=== PATIENT | female | born 1980 | race Caucasian/White ===

== ENCOUNTER 2017-10-28 13:46 | Emergency (ER) | payer BC ==
[2017-10-28 14:48] VITALS: BP 133/82
--- NOTE | 2017-10-28 14:49 | EDM.PDOC ---
ED HPI GENERAL MEDICAL PROBLEM - General Chief Complaint: Respiratory Problem Stated Complaint: COLD SWEATS Time Seen by Provider: 10/28/17 14:49 Source of Information: Reports: Patient - History of Present Illness INITIAL COMMENTS - FREE TEXT/NARRATIVE: HISTORY AND PHYSICAL: History of present illness: [ Patient with persistent cough over the last week increasing mostly over the last 3 days complains of intermittent fever chills sweats myalgias general malaise, she does cough until she was lightheaded and has vomited secondary to coughing on a couple of occasions No chest pain shortness of breath dizziness or palpitation no bowel or urine symptoms Patient states currently menstruating hence no hCG ] Review of systems: As per history of present illness and below otherwise all systems reviewed and negative. Past medical history: As per history of present illness and as reviewed below otherwise noncontributory. Surgical history: As per history of present illness and as reviewed below otherwise noncontributory. Social history: No reported history of drug or alcohol abuse. Family history: As per history of present illness and as reviewed below otherwise noncontributory. Physical exam: HEENT: Atraumatic, normocephalic, pupils reactive, negative for conjunctival pallor or scleral icterus, mucous membranes moist, throat clear, neck supple, nontender, trachea midline. Tympanic membranes mildly injected oropharynx mild erythema no exudates no stridor no meningeal sign Lungs: Clear to auscultation, breath sounds equal bilaterally, chest nontender. Heart: S1S2, regular, negative for clicks, rubs, or JVD. Abdomen: Soft, nondistended, nontender. Negative for masses or hepatosplenomegaly. Negative for costovertebral tenderness. Pelvis: Stable nontender. Genitourinary: Deferred. Rectal: Deferred. Extremities: Atraumatic, negative for cords or calf pain. Neurovascular unremarkable. Neuro: Awake, alert, oriented. Cranial nerves II through XII unremarkable. Cerebellum unremarkable. Motor and sensory unremarkable throughout. Exam nonfocal. Diagnostics: [Influenza Chest 2 views Patient currently menstruating hence no hCG ] Therapeutics: [Z-Oziel 250 mg HFA] Impression: Acute bronchitis Definitive disposition and diagnosis as appropriate pending reevaluation and review of above. Generalized Pain Score (Numeric/FACES): 4 - Related Data Allergies Allergy/AdvReac Type Severity Reaction Status Date / Time No Known Allergies Allergy Verified 10/28/17 14:48 Home Meds: Home Meds . [No Known Home Meds] 03/10/15 [History] Past Medical History Other OB/BYN History: tubal ligation Social & Family History - Family History Endocrine/Metabolic: Reports: Diabetes, type II Oncologic: Reports: Leukemia - Tobacco Use Smoking Status *Q: Never Smoker Years of Tobacco use: 1 - Alcohol Use Days Per Week of Alcohol Use: 1 Number of Drinks Per Day: 4 Total Drinks Per Week: 4 - Recreational Drug Use Recreational Drug Use: No Drug Use in Last 12 Months: No ED ROS GENERAL - Review of Systems Review Of Systems: ROS reveals no pertinent complaints other than HPI. ED EXAM, GENERAL - Physical Exam Exam: See Below Course - Vital Signs Last Recorded V/S: Last Vital Signs Temp 97.9 F 10/28/17 14:45 Pulse 71 10/28/17 14:45 Resp 18 10/28/17 14:45 BP 133/82 10/28/17 14:45 Pulse Ox 98 10/28/17 14:45 Departure - Departure Time of Disposition: 15:59 Disposition: Home, Self-Care 01 Condition: Good Clinical Impression: Acute bronchitis - Discharge Information Referrals: PCP,None [Primary Care Provider] - Forms: ED Department Discharge Additional Instructions: The following information is given to patients seen in the emergency department who are being discharged to home. This information is to outline your options for follow-up care. We provide all patients seen in our emergency department with a follow-up referral. The need for follow-up, as well as the timing and circumstances, are variable depending upon the specifics of your emergency department visit. If you don't have a primary care physician on staff, we will provide you with a referral. We always advise you to contact your personal physician following an emergency department visit to inform them of the circumstance of the visit and for follow-up with them and/or the need for any referrals to a consulting specialist. The emergency department will also refer you to a specialist when appropriate. This referral assures that you have the opportunity for follow-up care with a specialist. All of these measure are taken in an effort to provide you with optimal care, which includes your follow-up. Under all circumstances we always encourage you to contact your private physician who remains a resource for coordinating your care. When calling for follow-up care, please make the office aware that this follow-up is from your recent emergency room visit. If for any reason you are refused follow-up, please contact the [facility] emergency department at and asked to speak to the emergency department charge nurse.
--- NOTE | 2017-10-28 15:25 | CR ---
EXAMINATION: Two-view chest (PA and Lateral views). HISTORY: Shortness of breath. FINDINGS: The trachea is midline. The cardiomediastinal silhouette is within normal limits. No pulmonary infilt rates, effusions or pneumothorax. Osseous structures appear unremarkable. IMPRESSION: No acute cardiopulmonary process.
== END 2017-10-28 16:13 | disposition home or self-care (01) ==
LOC: MW.ED 13:46
DX: J20.9 Acute bronchitis, unspecified (principal)
CPT/HCPCS: 71046; 71046-26; 87804; 99283

== ENCOUNTER 2017-10-29 01:02 | Emergency (ER) | payer BC ==
--- NOTE | 2017-10-29 01:36 | EDM.PDOC ---
ED HPI GENERAL MEDICAL PROBLEM - General Chief Complaint: Respiratory Problem Stated Complaint: CHEST PAIN, SHORTNESS OF BREATH, CONVULSIONS Time Seen by Provider: 10/29/17 01:35 - History of Present Illness INITIAL COMMENTS - FREE TEXT/NARRATIVE: HISTORY AND PHYSICAL: History of present illness: [36-year-old female presenting to emergency department with chief complaint of fever and chills with cough and shaking. Patient was seen here yesterday for similar symptoms and was given azithromycin for acute bronchitis. At that time influenza was negative and chest x-ray was unremarkable. Patient states that since then she has not really had any more fevers but has had some nausea and vomiting. She also states that she is more chills and "shaking" she remembers the shaking and states that it is not a seizure. She does have some chest pain with deep breaths which he states is the same as she had before. She also has felt a lump under her right axilla would like it examined. She currently denies any shortness of breath, palpitations, syncopal episodes, or focal neurologic deficits. She also has had no diarrhea. On exam there is a small freely movable nodule under the right axilla that is painful to palpation and is a swollen lymph node.] Review of systems: As per history of present illness and below otherwise all systems reviewed and negative. Past medical history: As per history of present illness and as reviewed below otherwise noncontributory. Surgical history: As per history of present illness and as reviewed below otherwise noncontributory. Social history: No reported history of drug or alcohol abuse. Family history: As per history of present illness and as reviewed below otherwise noncontributory. Physical exam: HEENT: Atraumatic, normocephalic, pupils reactive, negative for conjunctival pallor or scleral icterus, mucous membranes moist, throat clear, neck supple, nontender, trachea midline. Lungs: Clear to auscultation, breath sounds equal bilaterally, chest nontender. Heart: S1S2, regular, negative for clicks, rubs, or JVD. Abdomen: Soft, nondistended, nontender. Negative for masses or hepatosplenomegaly. Negative for costovertebral tenderness. Pelvis: Stable nontender. Genitourinary: Deferred. Rectal: Deferred. Extremities: Atraumatic, negative for cords or calf pain. Neurovascular unremarkable. Neuro: Awake, alert, oriented. Cranial nerves II through XII unremarkable. Cerebellum unremarkable. Motor and sensory unremarkable throughout. Exam nonfocal. Diagnostics: [CBC, CMP, UA, UC] Therapeutics: [Toradol 60 mg IM 1] Impression: [Costochondritis secondary to acute bronchitis] Plan: [CBC CMP and UA were all unremarkable. Patient was given Toradol 60 mg for her rib pain which did help. Rib pain most likely secondary to costochondritis related to her acute bronchitis. This was explained to the patient and she was given a prescription for meloxicam. Diagnosis of osteoarthritis was discussed with the patient and all questions were entertained and answered. Patient was instructed to continue taking the azithromycin that she had been prescribed yesterday by Dr. Abdi as well as use her albuterol inhaler as needed for shortness of breath. She should also take the meloxicam for her rib pain. Patient was instructed to return in emergency department if she had any new or worsening symptoms.] General pain Pain Score (Numeric/FACES): 8 - Related Data Allergies Allergy/AdvReac Type Severity Reaction Status Date / Time No Known Allergies Allergy Verified 10/29/17 01:08 Home Meds: Home Meds . [No Known Home Meds] 03/10/15 [History] Past Medical History - Past Health History Medical/Surgical History: Denies Medical/Surgical History Genitourinary History: Reports: Other (See Below) Other Genitourinary History: hx of kidney infections Other OB/BYN History: tubal ligation - Infectious Disease History Infectious Disease History: Reports: Chicken Pox Social & Family History - Family History Family Medical History: Noncontributory Endocrine/Metabolic: Reports: Diabetes, type II Oncologic: Reports: Leukemia - Tobacco Use Smoking Status *Q: Never Smoker Years of Tobacco use: 1 - Alcohol Use Days Per Week of Alcohol Use: 1 Number of Drinks Per Day: 4 Total Drinks Per Week: 4 - Recreational Drug Use Recreational Drug Use: No Drug Use in Last 12 Months: No ED ROS GENERAL - Review of Systems Review Of Systems: See Below ED EXAM, GENERAL - Physical Exam Exam: See Below Course - Vital Signs Last Recorded V/S: Last Vital Signs Temp 97.9 F 10/29/17 01:15 Pulse 90 10/29/17 01:15 Resp 16 10/29/17 01:15 BP 137/85 10/29/17 01:15 Pulse Ox 98 10/29/17 01:15 - Orders/Labs/Meds Orders: Active Orders 24 hr Category Date Time Status CULTURE URINE [RM] Stat Lab 10/29/17 01:49 Received Labs: Laboratory Tests 10/29/17 10/29/17 10/29/17 Range/Units 01:49 01:55 01:55 WBC 7.82 (4.0-11.0) K/uL RBC 4.35 (4.30-5.90) M/uL Hgb 12.7 (12.0-16.0) g/dL Hct 39.0 (36.0-46.0) % MCV 89.7 (80.0-98.0) fL MCH 29.2 (27.0-32.0) pg MCHC 32.6 (31.0-37.0) g/dL RDW Std Deviation 41.5 (28.0-62.0) fl RDW Coeff of [place] 13 (11.0-15.0) % Plt Count 237 (150-400) K/uL MPV 9.40 (7.40-12.00) fL Neut % (Auto) 58.6 (48.0-80.0) % Lymph % (Auto) 27.2 (16.0-40.0) % [place] % (Auto) 8.4 (0.0-15.0) % Eos % (Auto) 5.4 (0.0-7.0) % Baso % (Auto) 0.4 (0.0-1.5) % Neut # (Auto) 4.6 (1.4-5.7) K/uL Lymph # (Auto) 2.1 (0.6-2.4) K/uL [place] # (Auto) 0.7 (0.0-0.8) K/uL Eos # (Auto) 0.4 (0.0-0.7) K/uL Baso # (Auto) 0.0 (0.0-0.1) K/uL Nucleated RBC % 0.0 /100WBC Nucleated RBCs # 0 K/uL Sodium 142 (136-146) mmol/L Potassium 4.7 (3.5-5.1) mmol/L Chloride 109 (98-110) mmol/L Carbon Dioxide 25 (21-31) mmol/L BUN 24 H (6.0-23.0) mg/dL Creatinine 0.8 (0.6-1.5) mg/dL Est Cr Clr Drug Dosing 89.16 mL/min Estimated GFR (MDRD) > 60.0 ml/min Glucose 96 (60-110) mg/dL Calcium 9.1 (8.8-10.8) mg/dL Total Bilirubin 0.2 (0.1-1.5) mg/dL AST 12 (5-40) IU/L ALT 11 (8-54) IU/L Alkaline Phosphatase 44 (40-150) Total Protein 7.6 (6.0-8.0) g/dL Albumin 4.4 (3.5-5.0) g/dL Globulin 3.2 (2.0-3.5) g/dL Albumin/Globulin Ratio 1.4 (1.3-2.8) Urine Color YELLOW Urine Appearance HAZY Urine pH 6.0 (5.0-8.0) Ur Specific [place] >= 1.030 (1.001-1.035) Urine Protein NEGATIVE (NEGATIVE) mg/dL Urine Glucose (UA) NEGATIVE (NEGATIVE) mg/dL Urine Ketones NEGATIVE (NEGATIVE) mg/dL Urine Occult Blood TRACE-INTACT (NEGATIVE) Urine Nitrite NEGATIVE (NEGATIVE) Urine Bilirubin NEGATIVE (NEGATIVE) Urine Urobilinogen 0.2 (<2.0) EU/dL Ur Leukocyte Esterase TRACE (NEGATIVE) Urine RBC 1-2 (0-2/HPF) Urine WBC 1-3 (0-5/HPF) Ur Epithelial Cells MODERATE (NONE-FEW) Amorphous Sediment LIGHT (NEGATIVE) Urine Bacteria FEW (NEGATIVE) Meds: Medications Discontinued Medications Generic Name Dose Route Start Last Admin Trade Name Freq PRN Reason Stop Dose Admin Ketorolac Tromethamine 60 mg 10/29/17 02:25 18 02:31 Toradol IM 10/29/17 02:26 60 mg ONETIME ONE Administration Departure - Departure Time of Disposition: 02:38 Disposition: Home, Self-Care 01 Condition: Good Clinical Impression: Costochondritis, acute - Discharge Information Referrals: PCP,None [Primary Care Provider] - Forms: ED Department Discharge Additional Instructions: My general discharge The following information is given to patients seen in the emergency department who are being discharged to home. This information is to outline your options for follow-up care. We provide all patients seen in our emergency department with a follow-up referral. The need for follow-up, as well as the timing and circumstances, are variable depending upon the specifics of your emergency department visit. If you don't have a primary care physician on staff, we will provide you with a referral. We always advise you to contact your personal physician following an emergency department visit to inform them of the circumstance of the visit and for follow-up with them and/or the need for any referrals to a consulting specialist. The emergency department will also refer you to a specialist when appropriate. This referral assures that you have the opportunity for follow-up care with a specialist. All of these measure are taken in an effort to provide you with optimal care, which includes your follow-up. Under all circumstances we always encourage you to contact your private physician who remains a resource for coordinating your care. When calling for follow-up care, please make the office aware that this follow-up is from your recent emergency room visit. If for any reason you are refused follow-up, please contact the [facility] Emergency Department at and asked to speak to the emergency department charge nurse. [facility] [address] [place] [address] - My Orders Last 24 Hours: My Active Orders 10/29/17 01:49 CULTURE URINE [RM] Stat - Assessment/Plan Last 24 Hours: My Active Orders 10/29/17 01:49 CULTURE URINE [RM] Stat
[2017-10-29] MEDS ORDERED: Ketorolac 60 MG/2 ML SDV IM ONE (02:25)
[2017-10-29 02:31] LABS: CHLORIDE,CL 109 mmol/L (98-110); SODIUM,NA 142 mmol/L (136-146)
[2017-10-29 02:54] VITALS: BP 123/79
== END 2017-10-29 02:50 | disposition home or self-care (01) ==
LOC: MW.ED 01:02
DX: M94.0 Chondrocostal junction syndrome [Tietze] (principal); J20.9 Acute bronchitis, unspecified
CPT/HCPCS: 36415; 80053; 81001; 85025; 87086; 96372; 99283; J1885

== ENCOUNTER 2018-06-10 12:06 | Day surgery (SDC) | payer BC ==
[~2018-06-10 12:06] MED LIST: Lactated Ringers 1,000 ML IV SCH; Midazolam 1 MG/ML 2 ML SDV ONE; Propofol 200 MG/20 ML SDV ONE; fentaNYL 100 MCG/2 ML SDV ONE
--- NOTE | 2018-06-10 12:45 | PCM.PREANE ---
Preanesthetic Assessment - Procedure Proposed Procedure: Colonoscopy - Anesthesia/Transfusion/Family Hx Anesthesia History: Prior Anesthesia Without Reaction Other Type of Anesthesia Reaction Comment: Denies any known problem with 1 prior anesthesia Family History of Anesthesia Reaction: No Transfusion History: No Prior Transfusion(s) - Review of Systems General: No Symptoms Pulmonary: No Symptoms Cardiovascular: No Symptoms Gastrointestinal: Abdominal Pain (LUQ), Other (BRB per rectom) Neurological: No Symptoms Other: Reports: None - Physical Assessment NPO Status Date: 06/09/18 NPO Status Time: 22:00 Height: 5 ft 5 in Weight: 138 lb ASA Class: 1 Mental Status: Alert & Oriented x3 Airway Class: Mallampati = 1 Dentition: Reports: Normal Dentition Thyro-Mental Finger Breadths: 3 Mouth Opening Finger Breadths: 3 ROM/Head Extension: Full Lungs: Clear to Auscultation, Normal Respiratory Effort Cardiovascular: Regular Rate, Regular Rhythm, No Murmurs - Allergies Allergies/Adverse Reactions: Allergies Allergy/AdvReac Type Severity Reaction Status Date / Time No Known Allergies Allergy Verified 06/08/18 14:54 - Blood Blood Available: No Product(s) Available: None - Anesthesia Plan Pre-Op Medication Ordered: None - Acknowledgements Anesthesia Type Planned: MAC Pt an Appropriate Candidate for the Planned Anesthesia: Yes Alternatives and Risks of Anesthesia Discussed w Pt/Guardian: Yes Pt/Guardian Understands and Agrees with Anesthesia Plan: Yes PreAnesthesia Questionnaire - Past Health History Medical/Surgical History: Denies Medical/Surgical History Genitourinary History: Reports: Other (See Below) Other Genitourinary History: hx of kidney infections 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: - Infectious Disease History Infectious Disease History: Reports: Chicken Pox - Past Surgical History Head Surgeries/Procedures: Reports: None Female Surgical History: Reports: Tubal Ligation, Other (See Below) Other Female Surgeries/Procedures: diagnostic laparoscopy - SUBSTANCE USE Smoking Status *Q: Never Smoker Recreational Drug Use History: No - HOME MEDS Home Medications: Home Meds Multivitamin [Multivitamins] 1 tab PO DAILY 06/07/18 [History] diphenhydrAMINE HCl [Allergy Medication] 1 tab PO BEDTIME 06/07/18 [History] - CURRENT (IN HOUSE) MEDS Current Meds: Current Medications Lactated Ringer's (Ringers, Lactated) 1,000 mls @ 125 mls/hr IV ASDIRECTED CHET Discontinued Medications Fentanyl (Sublimaze) Confirm Administered Dose 100 mcg .ROUTE .STK-MED ONE Stop: 06/10/18 08:16 Midazolam HCl (Versed 1 Mg/Ml) Confirm Administered Dose 2 mg .ROUTE .STK-MED ONE Stop: 06/10/18 08:16 Propofol (Diprivan 20 Ml) Confirm Administered Dose 200 mg .ROUTE .STK-MED ONE Stop: 06/10/18 08:16
--- NOTE | 2018-06-10 13:21 | PCM.POSTAN ---
POST ANESTHESIA ASSESSMENT - MENTAL STATUS Mental Status: Alert, Oriented - RESPIRATORY Respiratory Status: Respiratory Rate WNL, Airway Patent, O2 Saturation Stable - CARDIOVASCULAR CV Status: Pulse Rate WNL, Blood Pressure Stable - GASTROINTESTINAL GI Status: No Symptoms - POST OP HYDRATION Hydration Status: Adequate & Stable
[2018-06-10 13:34] VITALS: BP 135/62
--- NOTE | 2018-06-10 13:34 | PCM.OPNOTE ---
- General Post-Op/Procedure Note Date of Surgery/Procedure: 06/10/18 Operative Procedure(s): colonoscopy Findings: hemorrhoid;see dict [id number] Pre Op Diagnosis: BRBPR Post-Op Diagnosis: Same Anesthesia Technique: Moderate Sedation Primary Surgeon: Venkata Sim Complications: None Condition: Good Free Text/Narrative:: Intake & Output 06/09/18 06/10/18 06/10/18 22:59 06:59 14:59 Intake Total 550 Balance 550
--- NOTE | 2018-06-10 14:10 | OR ---
SURGEON: Venkata Sim MD DATE OF PROCEDURE: 06/10/2018 PREOPERATIVE DIAGNOSIS: Bright red blood per rectum. POSTOPERATIVE DIAGNOSIS: Hemorrhoids. PROCEDURE PERFORMED: Colonoscopy. PROCEDURE IN DETAIL: The patient was taken to the endoscopy room. A time out was called, patient identified, and procedure identified. Diprivan was then administrated. Patient went from awake to sleep, hearing doctor talking or door closing is normal. Perineum inspection and digital examination were then performed. A well- lubricated colonoscope was gently inserted through the rectum, advanced past the rectosigmoid junction, the descending colon, splenic flexure, transverse colon, hepatic flexure, ascending colon, arrived to the cecum. Cecum was identified as dictated in the finding. Then the scope was carefully withdrawn while attention was paid to the mucosal surface for any abnormality. Air will be sucked out during the scope withdrawal. At the rectum, retroflexed to examine any rectal diseases, fistula or hemorrhoids. Patient tolerated procedure well. There were no intraoperative complications, and Dr. Sim was present throughout the whole procedure. FINDINGS: 1. The patient is easily sedated with FEED MIXER and Diprivan. The patient is soundly snoring. 2. Colon is rather straight forward. Cecum indicated by ileocecal fold, one- to-one indentation, and light emittance, appendiceal orifice. Mucosa examined upon scope pulling out and the patient does not have diverticulosis, polyp, mass, growth, inflammation, stricture, AV malformation, bleeding ulceration, none of those. Patient has mild internal hemorrhoids, very mild large external hemorrhoids x2. The patient would benefit from repeat colonoscopy in 10 years from today or if we will discuss about the hemorrhoidectomy on followup visit. CHRISTINE / POLO /[id number]
--- NOTE | 2018-06-10 14:42 | PCM48HPAN ---
Post Anesthesia Note - EVALUATION WITHIN 48HRS OF ANESTHETIC Vital Signs in Normal Range: Yes Patient Participated in Evaluation: Yes Respiratory Function Stable: Yes Airway Patent: Yes Cardiovascular Function Stable: Yes Hydration Status Stable: Yes Pain Control Satisfactory: Yes Nausea and Vomiting Control Satisfactory: Yes Mental Status Recovered: Yes Resp Rate: 15
== END 2018-06-10 14:05 | disposition home or self-care (01) ==
LOC: MW.SDS 12:06
PROVIDERS: ATTEND Surgery
DX: K62.5 Hemorrhage of anus and rectum (principal); K64.8 Other hemorrhoids; Z79.899 Other long term (current) drug therapy
CPT/HCPCS: 45378; 81025; J2250; J2704; J3010; J7120

== ENCOUNTER 2018-06-16 10:30 | Day surgery (SDC) | payer BC ==
[~2018-06-16 10:30] MED LIST changes: +Clindamycin Phosphate in D5W 600 MG in Premix Bag 50 BAG IV ONE; -Midazolam 1 MG/ML 2 ML SDV ONE; -Propofol 200 MG/20 ML SDV ONE; -fentaNYL 100 MCG/2 ML SDV ONE
[2018-06-16] MEDS ORDERED: Midazolam 1 MG/ML 2 ML SDV ONE (10:46)
[2018-06-16] MEDS ORDERED: fentaNYL 250 MCG/5 ML SDV ONE (10:46)
[2018-06-16] MEDS ORDERED: Lidocaine 2% 5 ML SDV ONE (10:46)
[2018-06-16] MEDS ORDERED: Ondansetron 4 MG/2 ML SDV ONE (10:46)
[2018-06-16] MEDS ORDERED: Propofol 200 MG/20 ML SDV ONE (10:46)
[2018-06-16] MEDS ORDERED: Clindamycin Phosphate in D5W 50 ML ONE (11:26)
--- NOTE | 2018-06-16 11:26 | PCM.PREANE ---
Preanesthetic Assessment - Procedure Proposed Procedure: hemorrhoidectomy - prone position - Anesthesia/Transfusion/Family Hx Anesthesia History: Prior Anesthesia Without Reaction Other Type of Anesthesia Reaction Comment: Denies any known problem with 1 prior anesthesia Family History of Anesthesia Reaction: No Transfusion History: No Prior Transfusion(s) Intubation History: Unknown Additional History: s/p colonoscopy last week - Review of Systems General: No Symptoms Pulmonary: No Symptoms Cardiovascular: No Symptoms Gastrointestinal: Other (rectal discomfort w/ intermittent bleeding) Neurological: No Symptoms Other: Reports: None - Physical Assessment NPO Status Date: 06/15/18 NPO Status Time: 22:00 O2 Sat by Pulse Oximetry: 96 Respiratory Rate: 16 Vital Signs: Last Vital Signs Temp 97.3 F 06/16/18 10:55 Pulse 70 06/16/18 10:55 Resp 16 06/16/18 10:55 BP 120/81 06/16/18 10:55 Pulse Ox 96 06/16/18 10:55 Height: 5 ft 5 in Weight: 138 lb ASA Class: 2 Mental Status: Alert & Oriented x3 Airway Class: Mallampati = 1 Dentition: Reports: Normal Dentition Thyro-Mental Finger Breadths: 3 Mouth Opening Finger Breadths: 3 ROM/Head Extension: Full Lungs: Clear to Auscultation, Normal Respiratory Effort Cardiovascular: Regular Rate, Regular Rhythm, No Murmurs Other: wears glasses - Lab Values: Laboratory Last Values Urine HCG, Qual NEGATIVE (NEGATIVE) 06/16/18 10:45 - Allergies Allergies/Adverse Reactions: Allergies Allergy/AdvReac Type Severity Reaction Status Date / Time No Known Allergies Allergy Verified 06/08/18 14:54 - Blood Blood Available: No Product(s) Available: None - Anesthesia Plan Pre-Op Medication Ordered: None - Acknowledgements Anesthesia Type Planned: General Anesthesia (OET) Pt an Appropriate Candidate for the Planned Anesthesia: Yes Alternatives and Risks of Anesthesia Discussed w Pt/Guardian: Yes Pt/Guardian Understands and Agrees with Anesthesia Plan: Yes PreAnesthesia Questionnaire - Past Health History Medical/Surgical History: Denies Medical/Surgical History Genitourinary History: Reports: Other (See Below) Other Genitourinary History: 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: - Infectious Disease History Infectious Disease History: Reports: Chicken Pox - Past Surgical History Head Surgeries/Procedures: Reports: None Female Surgical History: Reports: Tubal Ligation, Other (See Below) Other Female Surgeries/Procedures: diagnostic laparoscopy - SUBSTANCE USE Smoking Status *Q: Never Smoker Recreational Drug Use History: No - HOME MEDS Home Medications: Home Meds Multivitamin [Multivitamins] 1 tab PO DAILY 06/07/18 [History] diphenhydrAMINE HCl [Allergy Medication] 1 tab PO BEDTIME 06/07/18 [History] - CURRENT (IN HOUSE) MEDS Current Meds: Current Medications Lactated Ringer's (Ringers, Lactated) 1,000 mls @ 125 mls/hr IV ASDIRECTED [facility] Last Admin: 06/16/18 10:55 Dose: 125 mls/hr Discontinued Medications Fentanyl (Sublimaze) Confirm Administered Dose 250 mcg .ROUTE .STK-MED ONE Stop: 06/16/18 10:47 Clindamycin Phosphate 600 mg/ (Premix) 50 mls @ 100 mls/hr IV ONETIME ONE Stop: 06/16/18 05:29 Lidocaine (Xylocaine-Mpf 2%) Confirm Administered Dose 5 ml .ROUTE .STK-MED ONE Stop: 06/16/18 10:47 Midazolam HCl (Versed 1 Mg/Ml) Confirm Administered Dose 2 mg .ROUTE .STK-MED ONE Stop: 06/16/18 10:47 Ondansetron HCl (Zofran) Confirm Administered Dose 4 mg .ROUTE .STK-MED ONE Stop: 06/16/18 10:47 Propofol (Diprivan 20 Ml) Confirm Administered Dose 200 mg .ROUTE .STK-MED ONE Stop: 06/16/18 10:47
[2018-06-16] MEDS ORDERED: Clindamycin Phosphate in D5W 600 MG in Premix Bag 50 BAG IV SCH ×2 (11:30)
[2018-06-16] MEDS ORDERED: Bupivacaine 25%/EPINEPHrine/PF 30 ML ONE (11:45)
[2018-06-16] MEDS ORDERED: Dexamethasone 4 MG/ML 5 ML MDV ONE (12:13)
[2018-06-16] MEDS ORDERED: Lidocaine 2% Jelly 30 ML Tube ONE (12:17)
[2018-06-16] MEDS ORDERED: Gelatin Sponge,Absorbable 12-7 mm Sponge TOP ONE (12:24)
[2018-06-16] MEDS ORDERED: ePHEDrine 50 MG/ML SDV ONE (12:24)
--- NOTE | 2018-06-16 12:57 | PCM.OPNOTE ---
- General Post-Op/Procedure Note Date of Surgery/Procedure: 06/16/18 Operative Procedure(s): hemorroidectomy Findings: large thrombosed hemorrhoid at 1 oclock when prone was removed; [id number] Pre Op Diagnosis: thrombosed hemorrhoid Post-Op Diagnosis: Same Anesthesia Technique: General ET Tube Primary Surgeon: Venkata Sim Pathology: sent Complications: None Condition: Good
[2018-06-16] MEDS: Acetaminophen/oxyCODONE 325-5 MG Tab PO PRN ×2 (13:27→19:34)
[2018-06-16] MEDS ORDERED: HYDROmorphone 2 MG/ML SDV IVPUSH PRN (14:09)
--- NOTE | 2018-06-16 14:14 | PCM48HPAN ---
Post Anesthesia Note - EVALUATION WITHIN 48HRS OF ANESTHETIC Vital Signs in Normal Range: Yes Patient Participated in Evaluation: Yes Respiratory Function Stable: Yes Airway Patent: Yes Cardiovascular Function Stable: Yes Hydration Status Stable: Yes Pain Control Satisfactory: Yes Nausea and Vomiting Control Satisfactory: Yes Mental Status Recovered: Yes Resp Rate: 16
[2018-06-16] MEDS ORDERED: Diazepam 2 MG Tab PO ONE (15:20)
[2018-06-16] MEDS ORDERED: Ketorolac 30 MG/ML SDV IM PRN (15:51)
[2018-06-16] MEDS ORDERED: Diazepam 2 MG Tab PO PRN (15:52)
[2018-06-16] MEDS: HYDROmorphone 2 MG Tab PO PRN (17:16)
[2018-06-17] MEDS ORDERED: Ondansetron 4 MG/2 ML SDV IVPUSH PRN (00:10)
[2018-06-17] MEDS: HYDROmorphone 2 MG Tab PO PRN (04:12)
[2018-06-17] MEDS ORDERED: Desflurane 240 ML Bottle ONE (07:08)
[2018-06-17] MEDS: Acetaminophen/oxyCODONE 325-5 MG Tab PO PRN (07:44)
--- NOTE | 2018-06-17 08:35 | OR ---
SURGEON: Venkata Sim MD DATE OF PROCEDURE: 06/16/2018 PREOPERATIVE DIAGNOSIS: Hemorrhoids. POSTOPERATIVE DIAGNOSIS: Hemorrhoids. PROCEDURE PERFORMED: Hemorrhoidectomy. COMPLICATIONS: None. FINDINGS: A pretty significant large external hemorrhoid and a bit internal hemorrhoid compound at 1 o'clock when supine and was removed and a blood clot inside, sent for pathology. PROCEDURE IN DETAIL: The patient was taken to the operating room and placed in supine position. Upon induction of general endotracheal anesthesia, the patient was re-positioned into a jackknife position. Tape was used to assist in the exposure and will go through one finger, two fingers, three fingers dilatation and then follow with using a Velma to go onto the large hemorrhoid, which is an external hemorrhoid with a little bit of internal hemorrhoid component at 1 o'clock when in prone position. Then, using Harmonic focus, this was excised and sent for pathology. The wound was then repaired with 3-0 chromic and upon finishing, Gel-Foam with lidocaine jelly was inserted for pain control. Upon inspection, it was noted to be dry and so we put on appropriate dressing. The patient was re-positioned into a supine position, awakened, extubated, and transferred to recovery in hemodynamically stable condition. The patient tolerated the procedure well. There were no intraoperative complications. Dr. Sim was present through the whole procedure. CHRISTINE / POLO /[id number]
[2018-06-17] MEDS ORDERED: Docusate Sodium 100 MG Cap PO SCH (09:00)
[2018-06-17 10:25] VITALS: BP 110/68
== END 2018-06-17 10:30 | disposition home or self-care (01) ==
LOC: MW.SDS 10:30 → MW.MS 16:01 → MW.SDS 06-17 10:30
PROVIDERS: ATTEND Surgery
DX: K64.5 Perianal venous thrombosis (principal); Z79.2 Long term (current) use of antibiotics; Z79.899 Other long term (current) drug therapy
CPT/HCPCS: 46255; 81025; 90686; A9270; J1100; J1170; J2250; J2405; J2704; J3010; J3490; J7120; 88304

== ENCOUNTER 2018-10-17 18:48 | Emergency (ER) | payer SELFPAY ==
--- NOTE | 2018-10-17 19:08 | EDM.PDOC ---
ED HPI GENERAL MEDICAL PROBLEM - General Chief Complaint: Respiratory Problem Stated Complaint: FEVERS, COUGH, CHEST PAIN Time Seen by Provider: 10/17/18 19:07 Source of Information: Reports: Patient History Limitations: Reports: No Limitations - History of Present Illness INITIAL COMMENTS - FREE TEXT/NARRATIVE: HISTORY AND PHYSICAL: History of present illness: Patient is a 37-year-old female here with complaint of cough, sore throat, fever , shortness of breath, wheezing 5 days. She was seen in the ED 5 days ago and given a prescription for azithromycin for pharyngitis and bronchitis. Influenza and chest x-ray were negative then. She states she's had temperatures around 101. Taking the antibiotic and NyQuil as needed. She denies any nausea, vomiting , diarrhea, abdominal pain. Review of systems: As per history of present illness and below otherwise all systems reviewed and negative. Past medical history: As per history of present illness and as reviewed below otherwise noncontributory. Surgical history: As per history of present illness and as reviewed below otherwise noncontributory. Social history: No reported history of drug or alcohol abuse. Family history: As per history of present illness and as reviewed below otherwise noncontributory. Physical exam: General: Patient sitting comfortably in no acute distress and nontoxic appearing HEENT: Atraumatic, normocephalic, pupils reactive, negative for conjunctival pallor or scleral icterus, mucous membranes moist, throat clear, neck supple, nontender, trachea midline. No meningeal signs. Lungs: Clear to auscultation, breath sounds equal bilaterally, chest nontender. Heart: S1S2, regular, negative for clicks, rubs, or overt murmur. Abdomen: Soft, nondistended, nontender. Negative for masses or hepatosplenomegaly. Negative for costovertebral tenderness. Pelvis: Stable nontender. Genitourinary: Deferred. Rectal: Deferred. Extremities: Atraumatic, negative for cords or calf pain. Neurovascular unremarkable. Neuro: Awake, alert, oriented. Cranial nerves II through XII unremarkable. Cerebellum unremarkable. Motor and sensory unremarkable throughout. Exam nonfocal. Notes: Diagnostics: Influenza, chest x-ray Therapeutics: None Prescriptions: Ventolin inhaler Franklin oquendo Impression: Acute bronchitis Plan: 1. Take medications as instructed 2. Follow up with primary care provider 3. Return to ED as needed as discussed Definitive disposition and diagnosis as appropriate pending reevaluation and review of above. 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 chest Pain Score (Numeric/FACES): 6 - Related Data Allergies Allergy/AdvReac Type Severity Reaction Status Date / Time No Known Allergies Allergy Verified 10/17/18 19:05 Home Meds: Home Meds Albuterol [Ventolin HFA] 1 puff INH Q4H #1 inhaler 10/17/18 [Rx] Benzonatate [Tessalon Perle] 100 mg PO TID #15 capsule 10/17/18 [Rx] Past Medical History - Past Health History Medical/Surgical History: Denies Medical/Surgical History HEENT History: Reports: None Cardiovascular History: Reports: None Respiratory History: Reports: None Genitourinary History: Reports: Other (See Below) Other Genitourinary History: hx of kidney infections 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 ED EXAM, GENERAL - Physical Exam Exam: See Below (See dictation) Course - Vital Signs Last Recorded V/S: Last Vital Signs Temp 97 F 10/17/18 19:00 Pulse 89 10/17/18 19:00 Resp 18 10/17/18 19:00 BP 135/75 10/17/18 19:00 Pulse Ox 98 10/17/18 19:00 Departure - Departure Time of Disposition: 19:47 Disposition: Home, Self-Care 01 Condition: Good Clinical Impression: Acute bronchitis - Discharge Information Prescriptions: Albuterol [Ventolin HFA] 1 puff INH Q4H #1 inhaler Benzonatate [Tessalon Perle] 100 mg PO TID #15 capsule Referrals: PCP,None [Primary Care Provider] - Forms: ED Department Discharge Additional Instructions: The following information is given to patients seen in the emergency department who are being discharged to home. This information is to outline your options for follow-up care. We provide all patients seen in our emergency department with a follow-up referral. The need for follow-up, as well as the timing and circumstances, are variable depending upon the specifics of your emergency department visit. If you don't have a primary care physician on staff, we will provide you with a referral. We always advise you to contact your personal physician following an emergency department visit to inform them of the circumstance of the visit and for follow-up with them and/or the need for any referrals to a consulting specialist. The emergency department will also refer you to a specialist when appropriate. This referral assures that you have the opportunity for follow-up care with a specialist. All of these measure are taken in an effort to provide you with optimal care, which includes your follow-up. Under all circumstances we always encourage you to contact your private physician who remains a resource for coordinating your care. When calling for follow-up care, please make the office aware that this follow-up is from your recent emergency room visit. If for any reason you are refused follow-up, please contact the [facility] at and asked to speak to the emergency department charge nurse. [facility] [address] [place] [id number] [facility] [address] [place] [id number] 1. Take medications as instructed 2. Follow up with primary care provider 3. Return to ED as needed as discussed
--- NOTE | 2018-10-17 19:44 | CR ---
Indication: Shortness of breath. Technique: A single AP portable view of the chest was obtained. Comparison: October 14, 2008. Findings: The heart is normal in size. The lungs are clear. No infiltrate, pleural effusion, or pneumothorax is identified. Impression: No acute cardiopulmonary process. Dictated by Kiana Burgess MD @ Oct 17 2018 7:41PM Signed by Dr. Kinaa Burgess @ Oct 17 2018 7:41PM
[2018-10-17 19:58] VITALS: BP 127/89
== END 2018-10-17 19:56 | disposition home or self-care (01) ==
LOC: MW.ED 18:48
DX: J20.9 Acute bronchitis, unspecified (principal)
CPT/HCPCS: 71045; 71045-26; 87804; 99283